=== PATIENT | female | born 1995 | race Caucasian/White ===

== ENCOUNTER 2016-11-17 17:15 | Emergency (ER) | payer OTHER ==
[~2016-11-17] VITALS: Ht 152.4 cm; Wt 65.8 kg
[~2016-11-17 17:15] MED LIST: NORCO 5-325 TA1 EACH PO; PRENATAL COMPL1 EACH PO
[2016-11-17 17:16] VITALS: BP 117/75
[2016-11-17 17:55] LABS: URINE BILIRUBIN 2+ (Negative); URINE BLOOD 3+ (Negative); URINE COLOR YELLOW; URINE GLUCOSE-RANDOM* NEGATIVE (Negative); URINE KETONES NEGATIVE (Negative); URINE NITRITE NEGATIVE (Negative); URINE PROTEIN (DIPSTICK) 1+ (Negative); URINE SPECIFIC GRAVITY 1.025 (1.003-1.035)
[2016-11-17 18:01] LABS: ICTOTEST (BILI CONFIRMATORY) Negative (Negative)
[2016-11-17] MEDS ORDERED: HAIR VITAMIN PO (18:12)
[2016-11-17] MEDS ORDERED: SKIN PO (18:12)
[2016-11-17 18:16] LABS: CASTS None Seen /LPF (None Seen); CRYSTALS None Seen /LPF (None Seen); SQUAMOUS >10 Many /LPF (0-3)
[2016-11-17 18:17] LABS: URINE RBC 0-2 Rare /HPF (0-2)
[2016-11-17 19:36] LABS: ABSOLUTE NEUTROPHILS 4.8 thou/uL (1.4-8.2); BASOPHILS 0.7 % (0.0-2.0); EOSINOPHILS 1.2 % (0.0-3.0); HEMATOCRIT 37.3 % (37.0-47.0); HEMOGLOBIN 12.6 gm/dL (12.0-15.0); LYMPHOCYTES 24.5 % (24.0-44.0); MCH 28.6 pg (26.0-34.0); MCHC 33.8 g/dL (28.0-37.0); MCV 84.6 fL (80.0-100.0); MONOCYTES 9.2 % (1.0-8.0); PLATELET COUNT 239 thou/uL (150-400); POLYS 64.4 % (36.0-66.0); RBC 4.41 mil/uL (4.20-5.00); RDW 15.6 % (10.5-14.5); WBC 7.5 thou/uL (4.0-11.0)
[2016-11-17 19:40] LABS: MANUAL DIFF NO
[2016-11-17] MEDS ORDERED: MACROBID 100 M100 M1 PO (20:16)
[2016-11-19 15:06] LABS: CHLAMYDIA TRACHOMATIS-PCR Positive (Negative); NEISSERIA GONORRHEA-PCR Positive (Negative)
== END 2016-11-17 20:27 | disposition home or self-care (01) ==
LOC: ER 17:15
PROVIDERS: Nurse Practitioner
DX: N39.0 Urinary tract infection, site not specified (principal); N93.8 Other specified abnormal uterine and vaginal bleeding; F17.210 Nicotine dependence, cigarettes, uncomplicated